=== PATIENT | female | born 1970 | race Caucasian/White ===

== ENCOUNTER 2019-03-19 07:58 | Emergency (ER) | payer MEDICAID, SELFPAY ==
[2019-03-19 08:09] VITALS: BP 123/45; PULSE 94; RESP 16; TEMP 37.1; O2SAT 100; BMI 27.3
[2019-03-19 08:14] LABS: Appearance,Urine CLOUDY (Clear); Bilirubin,Urine Negative (Negative); Blood, Urine 3+ (Negative); Color,Urine DK YELLOW (Yellow); Glucose,Urine (UA) Negative (Negative); Ketones,Urine Negative (Negative); Leukocyte Esterase,Urine Negative (Negative); Microscopic, Urine URINE MICROSCOPIC (MICROSCOPIC); Nitrate,Urine Negative (Negative); PH,Urine 5.5 (5.0-8.5); Protein,Urine Negative (Negative); Urobilinogen,Urine 0.2 EU/dl (0.2)
--- NOTE | 2019-03-19 08:16 | [facility].EDGENADL ---
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 The time I documented below is in addition to time spent performing reported procedures but includes the following listed in this critical care notation. Medical Decision Making - Medical Records Medical records reviewed: Yes: I reviewed the patient's medical records. - Rogelio Inquiry Pt receiving controlled substance: No Rogelio was queried for this patient: No Vital Signs: 03/19/19 08:09 03/19/19 09:49 Temperature 98.7 F 99 F Temperature Source Oral Oral Pulse Rate [Right Radial] 94 H 84 Respiratory Rate 16 Blood Pressure [Right Arm] 123/45 L 121/77 Blood Pressure Mean [Right Arm] 71 91 Blood Pressure Source [Right Arm] Automatic Cuff Automatic Cuff Blood Pressure Position [Right Arm] Sitting Sitting 02 Sat by Pulse Oximetry 100 98 Oxygen Delivery Method Room Air - Lab Data Lab results reviewed: Yes: I reviewed the patient's lab results. Lab Results 03/19/19 08:00: Urine Color Dk yellow, Urine Appearance Cloudy, Urine pH 5.5, Ur Specific [place] 1.020, Urine Protein Negative, Urine Glucose (UA) Negative, Urine Ketones Negative, Urine Blood 3+, Urine Nitrate Negative, Urine Bilirubin Negative, Urine Urobilinogen 0.2, Ur Leukocyte Esterase Negative, Urine RBC Tntc, Ur Squamous Epith Cells Occasional, Urine Bacteria 1+, Urine Mucus Trace 03/19/19 09:43: WBC 11.0 H, RBC 4.28, Hgb 11.6 L, Hct 37.0, MCV 86.3, MCH 27.2, MCHC 31.5 L, RDW 16.4, Plt Count 323, MPV 7.9, Neut % (Auto) 82.6 H, Lymph % (Auto) 13.1, [place] % (Auto) 3.9, Eos % (Auto) 0.2, Baso % (Auto) 0.2, Neut # (Auto) 9.1 H, Lymph # (Auto) 1.4, [place] # (Auto) 0.4, Eos # (Auto) 0.0, Baso # (Auto) 0.0 03/19/19 09:43: Sodium 140, Potassium 3.8, Chloride 103, Carbon Dioxide 27, Anion Gap 13.8, BUN 8, Creatinine 0.81, Estimated Creat Clear 108, Estimated GFR 75, Est GFR ( Amer) 91, Glucose 94, Calcium 8.8, Total Bilirubin 0.4, AST 13 L, ALT 21, Alkaline Phosphatase 72, Total Protein 7.1, Albumin 3.5, Globulin 3.6 H, Albumin/Globulin Ratio 1.0 L Result diagrams: 03/19/19 09:43 03/19/19 09:43 General Adult HPI - General Stated complaint: Bleeding over 2 weeks; pain Time Seen by Provider: 03/19/19 08:16 Mode of Arrival: Ambulatory Source of Information: Patient Limitations: No Limitations - History of Present Illness HPI narrative: Multiple complaints, including cough/congestion, vaginal bleeding, weakness. She's from [facility]. - Related Data Previous Rx's Medication Instructions Recorded Doxycycline Hyclate [Doxycycline 100 mg PO Q12 7 Days #14 cap 03/19/19 100mg Capsule] Allergies Allergy/AdvReac Type Severity Reaction Status Date / Time No Known Allergies Allergy Verified 03/19/19 08:23 [facility] History - Hepatitis A Screen Attestation statement:: This patient has been screened for Hepatitis A risk factors. I have reviewed the patient's past medical history: Yes ROS Obtained: Yes All systems reviewed & no additional complaints - Constitutional Constitutional: Denies chills, Denies fever(s) - Eyes Eyes: Denies change in vision - Cardiovascular Cardiovascular: Denies chest pain, Denies chest pain at rest, Denies diaphoresis, Denies dyspnea - Respiratory Respiratory: Yes chest congestion, Yes cough, No dyspnea, No dyspnea on exertion - Gastroi
--- NOTE | 2019-03-19 08:24 | ED_ITS ---
ED Disposition Clinical Impression: Vaginal bleeding, abnormal, Ovarian cyst, Bronchitis Disposition: Home, Self-Care Condition on Discharge: Good Additional Instructions: call Dr. Casey for follow up rn nursery appointment Prescriptions: Doxycycline Hyclate [Doxycycline 100mg Capsule] 100 mg PO Q12 7 Days #14 cap Referrals: Inocencio Casey MD [Staff Physician] - Time of Disposition: 10:38 - Critical Care Critical Care Time: No Attestation: On , the high probability of a clinically significant, sudden or life threatening deterioration of the following system(s) required my full and direct attention, intervention and personal management. The time I documented below is in addition to time spent performing reported procedures but includes the following listed in this critical care notation. Medical Decision Making - Medical Records Medical records reviewed: Yes: I reviewed the patient's medical records. - Rogelio Inquiry Pt receiving controlled substance: No Rogelio was queried for this patient: No Vital Signs: 03/19/19 08:09 03/19/19 09:49 Temperature 98.7 F 99 F Temperature Source Oral Oral Pulse Rate [Right Radial] 94 H 84 Respiratory Rate 16 Blood Pressure [Right Arm] 123/45 L 121/77 Blood Pressure Mean [Right Arm] 71 91 Blood Pressure Source [Right Arm] Automatic Cuff Automatic Cuff Blood Pressure Position [Right Arm] Sitting Sitting 02 Sat by Pulse Oximetry 100 98 Oxygen Delivery Method Room Air - Lab Data Lab results reviewed: Yes: I reviewed the patient's lab results. Lab Results 03/19/19 08:00: Urine Color Dk yellow, Urine Appearance Cloudy, Urine pH 5.5, Ur Specific [place] 1.020, Urine Protein Negative, Urine Glucose (UA) Negative, Urine Ketones Negative, Urine Blood 3+, Urine Nitrate Negative, Urine Bilirubin Negative, Urine Urobilinogen 0.2, Ur Leukocyte Esterase Negative, Urine RBC Tntc, Ur Squamous Epith Cells Occasional, Urine Bacteria 1+, Urine Mucus Trace 03/19/19 09:43: WBC 11.0 H, RBC 4.28, Hgb 11.6 L, Hct 37.0, MCV 86.3, MCH 27.2, MCHC 31.5 L, RDW 16.4, Plt Count 323, MPV 7.9, Neut % (Auto) 82.6 H, Lymph % (Auto) 13.1, [place] % (Auto) 3.9, Eos % (Auto) 0.2, Baso % (Auto) 0.2, Neut # (Auto) 9.1 H, Lymph # (Auto) 1.4, [place] # (Auto) 0.4, Eos # (Auto) 0.0, Baso # (Auto) 0.0 03/19/19 09:43: Sodium 140, Potassium 3.8, Chloride 103, Carbon Dioxide 27, Anion Gap 13.8, BUN 8, Creatinine 0.81, Estimated Creat Clear 108, Estimated GFR 75, Est GFR ( Amer) 91, Glucose 94, Calcium 8.8, Total Bilirubin 0.4, AST 13 L, ALT 21, Alkaline Phosphatase 72, Total Protein 7.1, Albumin 3.5, Globulin 3.6 H, Albumin/Globulin Ratio 1.0 L Result diagrams: 03/19/19 09:43 03/19/19 09:43 General Adult HPI - General Stated complaint: Bleeding over 2 weeks; pain Time Seen by Provider: 03/19/19 08:16 Mode of Arrival: Ambulatory Source of Information: Patient Limitations: No Limitations - History of Present Illness HPI narrative: Multiple complaints, including cough/congestion, vaginal bleeding, weakness. She's from [facility]. - Related Data Previous Rx's Medication Instructions Recorded Doxycycline Hyclate [Doxycycline 100 mg PO Q12 7 Days #14 cap 03/19/19 100mg Capsule]
--- NOTE | 2019-03-19 08:26 | CT_ITS ---
CT abdomen pelvis wo con CLINICAL HISTORY: Suprapubic pain and vaginal bleeding x3 weeks TECHNIQUE: Axial images obtained with sagittal and coronal reformats. All CT scans at the facility use one or more dose reduction, viz: automated exposure control, ma/kV adjustment per patient size (including targeted exams where dose is matched to indication, i.e. head), or iterative reconstruction technique. COMPARISON: None PROCEDURE: Oral Contrast:None IV Contrast: 0 ml IV Isovue 370 was injected intravenously. FINDINGS: Lung bases: Clear, there is no pleural fluid ABDOMEN: Liver: No masses or biliary dilatation. Gallbladder: Postcholecystectomy Pancreas: No masses or peripancreatic fluid collections. Spleen: Unremarkable. Adrenals: Unremarkable Kidneys/ureters: No masses. No renal calculi. No hydronephrosis. No perinephric fluid collections. No ureteral dilatation. There is a tiny nonobstructing calculus upper pole left kidney. Stomach, bowel The stomach and duodenum appear normal. Small bowel is normal. There are scattered stool and gas throughout the colon. Peritoneum: No abnormal fluid collections. No obvious inflammatory changes. Lymph nodes: No enlarged lymph nodes apparent. Vasculature: No evidence of abdominal aortic aneurysm. No retroperitoneal hemorrhage evident. Bones: Unremarkable appearing bony structures. No lytic or blastic changes. No obvious fractures. PELVIS: Reproductive: The uterus is upper limits of normal in size and in the midline. There is a somewhat tubular right adnexal cystic lesion measuring 4.9 cm is x 1.6 cm x 2.5 cm consistent with ovarian cyst. Bladder: Moderately distended with urine. There is no free fluid in the cul-de-sac. Appendix: Unremarkable. No distention or periappendiceal phlegmonous change. IMPRESSION: Right adnexal cystic lesion as described no other significant abdominal or pelvic pathology identified.
[2019-03-19 08:31] LABS: RBC,Urine TNTC #/hpf (0-3)
[2019-03-19 08:32] LABS: Bacteria,Urine 1+ /lpf; Mucus,Urine Trace /lpf; Squamous Epithelial Cell,Urine Occasional #/hpf (0-5)
--- NOTE | 2019-03-19 08:41 | PC.NURSE ---
pt to rad
--- NOTE | 2019-03-19 09:33 | PC.NURSE ---
ER spoke with radiology r/t pt ct at this time
[2019-03-19 09:49] VITALS: BP 121/77; PULSE 84; TEMP 37.2; O2SAT 98
[2019-03-19 09:59] LABS: Basophils % 0.2 % (0.1-2.0); Eosinophils % 0.2 % (0.1-12.0); Hemoglobin 11.6 g/dL (12.2-16.2); Lymphocytes # 1.4 K/mm3 (0.7-4.5); Lymphocytes % 13.1 % (10-50); Mean Corpuscular HGB Conc 31.5 g/dL (31.8-35.4); Mean Corpuscular Hemoglobin 27.2 pg (27.0-31.2); Mean Corpuscular Volume 86.3 fl (81-99); Mean Platelet Volume 7.9 fl (7.4-10.4); Monocytes # 0.4 K/mm3 (0.1-1.0); Monocytes % 3.9 % (1.7-9.3); Neutrophils # 9.1 K/mm3 (1.8-7.8); Neutrophils % 82.6 % (37.0-80.0); Platelet Count 323 K/mm3 (142-424); Red Blood Count 4.28 M/mm3 (4.20-5.40); Red Cell Distribution Width 16.4 % (11.5-17.5)
[2019-03-19 10:21] LABS: Alanine Aminotransferase 21 U/L (12-78); Albumin Level 3.5 gm/dL (3.4-5.0); Alkaline Phosphatase 72 U/L (46-116); Anion Gap 13.8 mEq/L (5-15); Aspartate Amino Transferase 13 U/L (15-37); Bilirubin,Total 0.4 mg/dL (0.2-1.0); Blood Urea Nitrogen 8 mg/dL (7-18); Calcium 8.8 mg/dL (8.5-10.1); Carbon Dioxide 27 mmol/L (21.0-32.0); Chloride 103 mmol/L (98-107); Creatinine Clearance Estimated 108 mL/min (50-200); Creatinine,Serum 0.81 mg/dL (0.55-1.02); Estimated Glomerular Filt Rate 75 ml/min (>60); GFR (African American) 91 ML/MIN (>60); Globulin 3.6 gm/dl (1.3-3.2); Glucose 94 mg/dL (74-106); Potassium 3.8 mmoL/L (3.5-5.1); Sodium 140 mmol/L (136-145); Total Protein,Serum 7.1 gm/dL (6.4-8.2)
[2019-03-19 10:36] VITALS: BP 112/44; PULSE 63; TEMP 37.1; O2SAT 97
[2019-03-19 11:07] VITALS: BP 112/44; PULSE 94; RESP 16; TEMP 37.1; O2SAT 100
== END 2019-03-19 11:09 | disposition home or self-care (01) ==
PROVIDERS: Emergency Provider Emergency Medicine
DX: N93.9 Abnormal uterine and vaginal bleeding, unspecified (principal); N83.209 Unspecified ovarian cyst, unspecified side; J20.9 Acute bronchitis, unspecified
CPT/HCPCS: 74176; 80053; 81001; 85025; 99283